=== PATIENT | female | born 1970 | race Two or more races ===

== ENCOUNTER 2022-03-23 01:32 | Inpatient (IN) | payer MEDICAID ==
[~2022-03-23] VITALS: Ht 154.9 cm; Wt 68.5 kg
[2022-03-23 02:30] LABS: Basophils # (auto) 0.1 10 ^3/uL (0-0.2); Basophils % (auto) 1.5 % (0.0-2.0); Eosinophils # (auto) 0.9 10 ^3/uL (0-0.8); Eosinophils % (auto) 11.5 % (0.0-7.0); Hematocrit 39.8 % (36.0-46.0); Hemoglobin 13.3 g/dL (12.2-16.2); Lymphocytes # (auto) 3.3 10 ^3/uL (0.4-5.4); Lymphocytes % (auto) 41.4 % (10.0-50.0); Mean Corpuscular Hemoglobin 29.3 pg (28.0-32.0); Mean Corpuscular Hgb Conc. 33.4 g/dL (32.0-36.0); Mean Corpuscular Volume 87.7 fL (80.0-100.0); Monocytes # (auto) 0.5 10 ^3/uL (0-1.3); Neutrophils # (auto) 3.2 10 ^3/uL (1.6-8.6); Neutrophils % (auto) 39.6 % (37.0-80.0); Nucleated Red Blood Cells % 0.1 %; Red Blood Cells 4.53 10^6/uL (4.0-5.20); Red Cell Distribution Width 14.6 % (11.8-14.3); White Blood Cell 8.1 10^3/uL (4.4-10.8)
[2022-03-23] MEDS ORDERED: AZITHROMYCIN 250 MG TAB PO ONE (02:45)
[2022-03-23] MEDS ORDERED: ALBUTEROL SULF 2.5 MG/0.5ML(0.5%) NEB SOLN NEB ONE ×2 (02:45→05:15)
[2022-03-23 02:48] LABS: Albumin 3.4 g/dL (3.4-5.0); BUN/Creatinine Ratio 26.8; Calcium 8.4 mg/dL (8.5-10.1); Potassium 3.8 mmol/L (3.5-5.1)
[2022-03-23 02:50] LABS: Bilirubin, Total 0.3 mg/dL (0.2-1.0); Total Protein 7.2 g/dL (6.4-8.2)
[2022-03-23] MEDS ORDERED: methylPREDNISolone SOD SUCC 125 MG/2 ML VL IV ONE (05:15)
[2022-03-23] MEDS ORDERED: ONDANSETRON HCL 4 MG/2 ML VIAL IV PRN (10:30)
[2022-03-23] MEDS ORDERED: DOCUSATE SOD 100 MG CAP PO PRN (10:30)
[2022-03-23] MEDS ORDERED: DEXTROSE (50%) 50ML SYRG IV PRN (10:30)
[2022-03-23] MEDS: ALBUTEROL SULF 2.5 MG/0.5ML(0.5%) NEB SOLN NEB SCH ×2 (11:50→19:40)
[2022-03-23] MEDS: IPRATROPIUM BROM 0.5 MG/2.5ML INH SOL NEB SCH ×2 (11:50→19:40)
[2022-03-23] MEDS: ACCU-CHEK COMFORT CURVE STRIP VI SCH ×3 (13:16→23:51)
[2022-03-23] MEDS: InsuLIN REG 1unit/0.01ml Soln (100units/ml) SC SCH ×2 (13:25→17:43)
[2022-03-23 15:56] VITALS: BP 141/82
[2022-03-23] MEDS: HYDROcodone-ACET 5/325MG TAB PO PRN (17:49)
[2022-03-24] MEDS: methylPREDNISolone SOD SUCC 40 MG/ML VL IV SCH ×3 (00:25→22:36)
[2022-03-24] MEDS: InsuLIN REG 1unit/0.01ml Soln (100units/ml) SC SCH ×5 (00:25→22:41)
[2022-03-24 04:43] LABS: Basophils # (auto) 0 10 ^3/uL (0-0.2); Basophils % (auto) 0.4 % (0.0-2.0); Eosinophils # (auto) 0 10 ^3/uL (0-0.8); Eosinophils % (auto) 0.3 % (0.0-7.0); Hematocrit 38.1 % (36.0-46.0); Hemoglobin 12.5 g/dL (12.2-16.2); Lymphocytes # (auto) 2.3 10 ^3/uL (0.4-5.4); Lymphocytes % (auto) 19.7 % (10.0-50.0); Mean Corpuscular Hemoglobin 28.9 pg (28.0-32.0); Mean Corpuscular Hgb Conc. 32.8 g/dL (32.0-36.0); Monocytes # (auto) 0.8 10 ^3/uL (0-1.3); Monocytes % (auto) 7.1 % (0.0-12.0); Neutrophils # (auto) 8.5 10 ^3/uL (1.6-8.6); Neutrophils % (auto) 72.5 % (37.0-80.0); Red Blood Cells 4.33 10^6/uL (4.0-5.20); Red Cell Distribution Width 14.9 % (11.8-14.3); White Blood Cell 11.8 10^3/uL (4.4-10.8)
[2022-03-24 05:09] LABS: Potassium 4.3 mmol/L (3.5-5.1)
[2022-03-24 05:15] LABS: Albumin 3.1 g/dL (3.4-5.0); BUN/Creatinine Ratio 33.3
[2022-03-24 05:18] LABS: Bilirubin, Total 0.3 mg/dL (0.2-1.0); Total Protein 6.6 g/dL (6.4-8.2)
[2022-03-24] MEDS: IPRATROPIUM BROM 0.5 MG/2.5ML INH SOL NEB SCH ×3 (06:22→18:57)
[2022-03-24] MEDS: ALBUTEROL SULF 2.5 MG/0.5ML(0.5%) NEB SOLN NEB SCH ×3 (06:22→18:57)
[2022-03-24] MEDS: ACCU-CHEK COMFORT CURVE STRIP VI SCH ×4 (07:24→22:36)
[2022-03-24] MEDS: HYDROcodone-ACET 5/325MG TAB PO PRN ×2 (08:22→17:52)
[2022-03-24] MEDS: ENOXAPARIN SOD 40 MG/0.4 ML SYRINGE SC SCH (09:56)
[2022-03-24] MEDS: AZITHROMYCIN 500MG/ 250ML 250 ML IV SCH (09:56)
[2022-03-24] MEDS ORDERED: SODIUM CHLORIDE 0.9% 1,000 ML IV ONE (12:00)
[2022-03-24 12:11] LABS: Cholesterol 161 mg/dL (< 200); Triglycerides 148 mg/dL (< 150)
[2022-03-24 12:13] LABS: HDL Cholesterol 57 mg/dL (40-59); LDL Cholesterol 92 mg/dL (< 100)
[2022-03-24 17:10] VITALS: BP 137/77
[2022-03-24] MEDS ORDERED: ALBUAER3 IN (18:46)
[2022-03-24] MEDS ORDERED: INSLANTI SC (18:46)
[2022-03-24] MEDS ORDERED: METF-370 PO (18:46)
[2022-03-24 21:41] VITALS: BP 133/70
[2022-03-25 05:00] VITALS: BP 139/70
[2022-03-25] MEDS: InsuLIN REG 1unit/0.01ml Soln (100units/ml) SC SCH ×4 (06:17→21:41)
[2022-03-25] MEDS: ACCU-CHEK COMFORT CURVE STRIP VI SCH ×4 (06:17→21:40)
[2022-03-25] MEDS: IPRATROPIUM BROM 0.5 MG/2.5ML INH SOL NEB SCH ×3 (08:34→22:26)
[2022-03-25] MEDS: ALBUTEROL SULF 2.5 MG/0.5ML(0.5%) NEB SOLN NEB SCH ×4 (08:34→22:26)
[2022-03-25 09:00] VITALS: BP 137/82
[2022-03-25] MEDS: HYDROcodone-ACET 5/325MG TAB PO PRN ×2 (11:00→16:38)
[2022-03-25] MEDS: ENOXAPARIN SOD 40 MG/0.4 ML SYRINGE SC SCH (11:01)
[2022-03-25] MEDS: methylPREDNISolone SOD SUCC 40 MG/ML VL IV SCH ×2 (11:01→21:40)
[2022-03-25] MEDS: AZITHROMYCIN 500MG/ 250ML 250 ML IV SCH (11:01)
[2022-03-25 12:00] VITALS: BP 131/81
[2022-03-25 16:02] LABS: Beta HCG, Quantitative < 1 mlU/mL (1-3); Thyroid Stimulating Hormone 1.29 uIU/mL (0.358-3.74)
[2022-03-25 17:00] VITALS: BP 149/87
[2022-03-25] MEDS ORDERED: IPRATROPIUM BROM 0.5 MG/2.5ML INH SOL NEB SCH (18:00)
[2022-03-25 21:30] VITALS: BP 130/82
[2022-03-26 04:30] VITALS: BP 134/81
[2022-03-26] MEDS: IPRATROPIUM BROM 0.5 MG/2.5ML INH SOL NEB SCH ×6 (06:09→22:39)
[2022-03-26] MEDS: ALBUTEROL SULF 2.5 MG/0.5ML(0.5%) NEB SOLN NEB SCH ×6 (06:09→22:39)
[2022-03-26] MEDS: InsuLIN REG 1unit/0.01ml Soln (100units/ml) SC SCH ×4 (06:19→22:10)
[2022-03-26] MEDS: ACCU-CHEK COMFORT CURVE STRIP VI SCH ×4 (06:19→21:14)
[2022-03-26] MEDS ORDERED: ADENOSINE 58 MG in GIVE UN-DILUTED 0 ML IV STA (07:14)
[2022-03-26 08:00] VITALS: BP 140/73
[2022-03-26 08:24] VITALS: BP 143/91
[2022-03-26] MEDS ORDERED: PRED20TA2 PO (10:14)
[2022-03-26] MEDS ORDERED: ALBU108A5 IN (10:14)
[2022-03-26] MEDS ORDERED: AZITTAB PO (10:14)
[2022-03-26] MEDS: ENOXAPARIN SOD 40 MG/0.4 ML SYRINGE SC SCH (10:33)
[2022-03-26] MEDS: AZITHROMYCIN 250 MG TAB PO SCH (10:33)
[2022-03-26] MEDS: methylPREDNISolone SOD SUCC 40 MG/ML VL IV SCH ×2 (10:34→21:14)
[2022-03-26 12:00] VITALS: BP 140/84
[2022-03-26 16:00] VITALS: BP 146/99
[2022-03-26 22:00] VITALS: BP 139/79
[2022-03-27 05:00] VITALS: BP 137/93
[2022-03-27] MEDS: ACCU-CHEK COMFORT CURVE STRIP VI SCH ×3 (06:07→17:00)
[2022-03-27] MEDS: InsuLIN REG 1unit/0.01ml Soln (100units/ml) SC SCH ×3 (06:10→17:00)
[2022-03-27] MEDS: IPRATROPIUM BROM 0.5 MG/2.5ML INH SOL NEB SCH ×2 (06:58→10:33)
[2022-03-27] MEDS: ALBUTEROL SULF 2.5 MG/0.5ML(0.5%) NEB SOLN NEB SCH ×2 (06:58→10:33)
[2022-03-27 08:20] VITALS: BP 141/91
[2022-03-27] MEDS: AZITHROMYCIN 250 MG TAB PO SCH (10:06)
[2022-03-27] MEDS: methylPREDNISolone SOD SUCC 40 MG/ML VL IV SCH (10:06)
[2022-03-27] MEDS: ENOXAPARIN SOD 40 MG/0.4 ML SYRINGE SC SCH (10:06)
[2022-03-27 12:20] VITALS: BP 139/91
[2022-03-27 16:15] VITALS: BP 137/84
== END 2022-03-27 17:15 | disposition home or self-care (01) | DRG 141 ==
LOC: ER 01:39 → OVERFLOW 10:29 → EAST 03-24 16:52
PROVIDERS: ADMIT Nurse Practitioner Family; ATTEND Nurse Practitioner Acute Care
DX: J45.901 Unspecified asthma with (acute) exacerbation (principal); I24.9 Acute ischemic heart disease, unspecified; E11.65 Type 2 diabetes mellitus with hyperglycemia; E66.9 Obesity, unspecified; E78.5 Hyperlipidemia, unspecified; Z20.822 Contact with and (suspected) exposure to COVID-19; Z79.4 Long term (current) use of insulin; Z90.49 Acquired absence of other specified parts of digestive tract; Z68.28 Body mass index [BMI] 28.0-28.9, adult
CPT/HCPCS: 36415; 71045; 78452; 80053; 80061; 82962; 83036; 83735; 83880; 84443; 84484; 84702; 85025; 87426; 87804; 93005; 93017; 93306; 94640; 96374; G0378; J0153; J1815

== ENCOUNTER 2022-08-27 01:18 | Emergency (ER) | payer MEDICAID ==
[~2022-08-27] VITALS: Ht 154.9 cm; Wt 73.0 kg
[~2022-08-27 01:18] MED LIST: ALBU108A5 IN; ALBUAER3 IN; AMOX500T3 PO; AZITTAB PO; INSLANTI SC; METF-370 PO; METH4PAK PO; PRED20TA2 PO; PROM1SOL4 PO
[2022-08-27] MEDS ORDERED: ALBUTEROL SULF 2.5 MG/0.5ML(0.5%) NEB SOLN NEB ONE ×2 (01:30→05:45)
[2022-08-27] MEDS ORDERED: IPRATROPIUM BROM 0.5 MG/2.5ML INH SOL NEB ONE ×2 (01:30→05:45)
[2022-08-27] MEDS ORDERED: DexAMETHasone SOD PHOS 10MG/1ML VIAL INJ IM ONE (01:45)
[2022-08-27] MEDS ORDERED: PRED20TA2 PO (05:27)
[2022-08-27] MEDS ORDERED: AZIT250T9 PO (05:27)
[2022-08-27] MEDS ORDERED: ALBUAER3 IN (05:27)
[2022-08-27 06:40] VITALS: BP 134/82
== END 2022-08-27 05:28 | disposition home or self-care (01) ==
LOC: ER 01:18
DX: J45.901 Unspecified asthma with (acute) exacerbation (principal); E11.9 Type 2 diabetes mellitus without complications; E78.5 Hyperlipidemia, unspecified
CPT/HCPCS: 71045; 94640; 96372; 99283; J1100; J7644

== ENCOUNTER 2023-06-29 11:00 | Emergency (ER) | payer SELFPAY ==
[~2023-06-29] VITALS: Ht 154.9 cm; Wt 67.9 kg
[~2023-06-29 11:00] MED LIST changes: +AZIT-43 PO
[2023-06-29 12:26] VITALS: BP 155/86; PULSE 104; TEMP 97.9
[2023-06-29] MEDS ORDERED: DexAMETHasone SOD PHOS 10MG/1ML VIAL INJ IM ONE (13:00)
[2023-06-29] MEDS ORDERED: IPRATROPIUM BROM 0.5 MG/2.5ML INH SOL NEB ONE (13:00)
[2023-06-29] MEDS ORDERED: ALBUTEROL SULF 2.5 MG/0.5ML(0.5%) NEB SOLN NEB ONE (13:00)
[2023-06-29 13:24] LABS: Basophils # (auto) 0.1 10 ^3/uL (0-0.2); Basophils % (auto) 0.4 % (0.0-2.0); Eosinophils # (auto) 0.1 10 ^3/uL (0-0.8); Eosinophils % (auto) 0.5 % (0.0-7.0); Hematocrit 42.8 % (36.0-46.0); Hemoglobin 13.9 g/dL (12.2-16.2); Lymphocytes # (auto) 1.7 10 ^3/uL (0.4-5.4); Lymphocytes % (auto) 12.6 % (10.0-50.0); Mean Corpuscular Hgb Conc. 32.5 g/dL (32.0-36.0); Mean Corpuscular Volume 89.4 fL (80.0-100.0); Monocytes # (auto) 0.5 10 ^3/uL (0-1.3); Neutrophils # (auto) 11.1 10 ^3/uL (1.6-8.6); Neutrophils % (auto) 82.5 % (37.0-80.0); Red Blood Cells 4.79 10^6/uL (4.0-5.20); Red Cell Distribution Width 14.6 % (11.8-14.3); White Blood Cell 13.5 10^3/uL (4.4-10.8)
[2023-06-29 13:31] LABS: Chloride 109 mmol/L (98-107); Potassium 4.6 mmol/L (3.5-5.1); Sodium 141 mmol/L (136-145)
[2023-06-29 13:32] LABS: Anion Gap 9 (5-15); Calcium 9.4 mg/dL (8.5-10.1); Carbon Dioxide 23 mmol/L (20-30)
[2023-06-29 13:37] LABS: BUN/Creatinine Ratio 21.9 (10.0-20.0); Blood Urea Nitrogen 14 mg/dL (9-23); Glucose 132 mg/dL (74-106)
[2023-06-29 13:53] VITALS: RESP 16; O2SAT 98
== END 2023-06-29 14:35 | disposition home or self-care (01) ==
LOC: ER 11:00
DX: J45.901 Unspecified asthma with (acute) exacerbation (principal); E11.9 Type 2 diabetes mellitus without complications; E78.5 Hyperlipidemia, unspecified
CPT/HCPCS: 36415; 71046; 80048; 84484; 85025; 94640; 96372; 99284; J1100; J7644

== ENCOUNTER 2023-07-06 04:01 | Emergency (ER) | payer SELFPAY ==
[~2023-07-06] VITALS: Ht 154.9 cm; Wt 70.5 kg
[2023-07-06 04:05] VITALS: BP 145/76; PULSE 94; TEMP 97.8
[2023-07-06] MEDS ORDERED: ALBUTEROL SULF 2.5 MG/0.5ML(0.5%) NEB SOLN NEB ONE (04:15)
[2023-07-06] MEDS ORDERED: IPRATROPIUM BROM 0.5 MG/2.5ML INH SOL NEB ONE (04:15)
[2023-07-06] MEDS ORDERED: DexAMETHasone SOD PHOS 10MG/1ML VIAL INJ IM ONE (04:30)
[2023-07-06 04:31] VITALS: RESP 18; O2SAT 97
[2023-07-06] MEDS ORDERED: PRED20TA2 PO (04:39)
[2023-07-06] MEDS ORDERED: FLUTICASONE PROP NASAL SPR 0.05 % (50MCG) 16GM EACHNOSTRI ONE (05:30)
[2023-07-06] MEDS ORDERED: AZIT500T66 PO (05:34)
== END 2023-07-06 06:02 | disposition home or self-care (01) ==
LOC: ER 04:01
DX: J45.901 Unspecified asthma with (acute) exacerbation (principal); E11.9 Type 2 diabetes mellitus without complications; E78.5 Hyperlipidemia, unspecified
CPT/HCPCS: 71046; 94640; 96372; 99283; J1100; J7644

== ENCOUNTER 2023-07-23 22:34 | Emergency (ER) | payer MEDICAID ==
[~2023-07-23] VITALS: Ht 154.9 cm; Wt 72.0 kg
[~2023-07-23 22:34] MED LIST changes: +AZIT500T66 PO
[2023-07-23 22:45] VITALS: BP 133/84; PULSE 86; RESP 20; TEMP 97.6; O2SAT 96
[2023-07-24] MEDS ORDERED: BENZ100C97 PO (01:55)
[2023-07-24] MEDS ORDERED: ALBU108A5 IN (01:55)
[2023-07-24] MEDS: DexAMETHasone SOD PHOS 10MG/1ML VIAL INJ IM ONE (02:04)
== END 2023-07-24 02:11 | disposition home or self-care (01) ==
LOC: ER 22:34
DX: J45.901 Unspecified asthma with (acute) exacerbation (principal); E11.9 Type 2 diabetes mellitus without complications; E78.5 Hyperlipidemia, unspecified
CPT/HCPCS: 96372; 99283; J1100

== ENCOUNTER 2023-09-18 02:57 | Inpatient (IN) | payer MEDICAID ==
[~2023-09-18] VITALS: Ht 154.9 cm; Wt 65.5 kg
[2023-09-18] VITALS (9 sets, daily range): BP systolic 86–134; BP diastolic 67–75; PULSE 82–114; RESP 12–26; TEMP 97.9; O2SAT 87–99
[~2023-09-18 02:57] MED LIST changes: +BENZ100C97 PO
[2023-09-18] MEDS: IPRATROPIUM BROM 0.5 MG/2.5ML INH SOL NEB ONE ×3 (03:26→05:30)
[2023-09-18] MEDS: ALBUTEROL SULF 2.5 MG/0.5ML(0.5%) NEB SOLN NEB ONE ×3 (03:26→05:30)
[2023-09-18 04:11] LABS: Basophils # (auto) 0.1 10 ^3/uL (0-0.2); Eosinophils # (auto) 1.1 10 ^3/uL (0-0.8); Eosinophils % (auto) 10.5 % (0.0-7.0); Hematocrit 42.4 % (36.0-46.0); Lymphocytes # (auto) 3.3 10 ^3/uL (0.4-5.4); Lymphocytes % (auto) 32.4 % (10.0-50.0); Mean Corpuscular Hemoglobin 29.3 pg (28.0-32.0); Mean Corpuscular Hgb Conc. 32.9 g/dL (32.0-36.0); Mean Corpuscular Volume 89.1 fL (80.0-100.0); Monocytes # (auto) 0.6 10 ^3/uL (0-1.3); Monocytes % (auto) 5.5 % (0.0-12.0); Neutrophils # (auto) 5.1 10 ^3/uL (1.6-8.6); Neutrophils % (auto) 50.6 % (37.0-80.0); Red Blood Cells 4.76 10^6/uL (4.0-5.20); Red Cell Distribution Width 14.4 % (11.8-14.3); White Blood Cell 10.1 10^3/uL (4.4-10.8)
[2023-09-18 04:12] LABS: Chloride 107 mmol/L (98-107); Potassium 3.6 mmol/L (3.5-5.1); Sodium 135 mmol/L (136-145)
[2023-09-18 04:13] LABS: Anion Gap 7 (5-15); Calcium 9.1 mg/dL (8.7-10.4); Carbon Dioxide 21 mmol/L (20-30)
[2023-09-18 04:18] LABS: BUN/Creatinine Ratio 12.7 (10.0-20.0); Blood Urea Nitrogen 7 mg/dL (9-23); Glucose 105 mg/dL (74-106)
[2023-09-18] MEDS: methylPREDNISolone SOD SUCC 125 MG/2 ML VL IV ONE (05:08)
[2023-09-18] MEDS ORDERED: DEXTROSE (50%) 50ML SYRG IV PRN (06:00)
[2023-09-18] MEDS ORDERED: NITROGLYCERIN 0.4 MG SL TAB SL PRN (06:00)
[2023-09-18] MEDS: ACCU-CHEK COMFORT CURVE STRIP VI SCH (06:34)
[2023-09-18] MEDS: KETOROLAC TROMETH 30 MG/ML 1ML VIAL IV ONE (06:36)
[2023-09-18] MEDS: InsuLIN REG 1unit/0.01ml Soln (100units/ml) SC SCH (06:36)
[2023-09-18] MEDS: IPRATROPIUM BROM 0.5 MG/2.5ML INH SOL NEB PRN (09:52)
[2023-09-18] MEDS: ALBUTEROL SULF 2.5 MG/0.5ML(0.5%) NEB SOLN NEB PRN (09:53)
[2023-09-18] MEDS: methylPREDNISolone SOD SUCC 40 MG/ML VL IV SCH ×2 (10:41→22:34)
[2023-09-18] MEDS: ONDANSETRON HCL 4 MG/2 ML VIAL IV PRN (10:41)
[2023-09-18] MEDS: MORPHINE SULFATE INJ 2 MG/ml SYRG IV PRN (10:42)
[2023-09-18 11:04] LABS: Base Excess -2.5 mmol/L (-2.0-2.0)
[2023-09-18] MEDS: IPRATROPIUM BROM 0.5 MG/2.5ML INH SOL NEB SCH (14:39)
[2023-09-18] MEDS: ALBUTEROL SULF 2.5 MG/0.5ML(0.5%) NEB SOLN NEB SCH (14:39)
[2023-09-18] MEDS: MAGNESIUM SULFATE 1GM/100ML 100 ML IV ONE (18:25)
[2023-09-18] MEDS: SODIUM CHLORIDE 0.9% 1,000 ML IV ONE (18:25)
[2023-09-18] MEDS: ACETAMINOPHEN 325 MG TAB PO PRN (18:26)
[2023-09-18] MEDS: IPRATROPIUM BROM 0.5 MG/2.5ML INH SOL ONE ×2 (18:34→22:26)
[2023-09-18] MEDS: ALBUTEROL SULF 2.5 MG/0.5ML(0.5%) NEB SOLN ONE ×2 (18:34→22:26)
[2023-09-18] MEDS: MONTELUKAST SODIUM 10 MG TAB PO SCH (22:33)
[2023-09-19] VITALS (13 sets, daily range): BP systolic 86–130; BP diastolic 55–72; PULSE 75–98; RESP 17–22; TEMP 97.7–98.1; O2SAT 95–100
[2023-09-19] MEDS: ALBUTEROL SULF 2.5 MG/0.5ML(0.5%) NEB SOLN ONE (02:10)
[2023-09-19] MEDS: IPRATROPIUM BROM 0.5 MG/2.5ML INH SOL ONE (02:10)
[2023-09-19 03:12] LABS: Urine Bacteria FEW /hpf (None Seen); Urine Blood Negative /uL (Negative); Urine Clarity Clear (Clear); Urine Color Light-Yellow (Yellow); Urine Protein, UAD Negative (Negative); Urine Specific Gravity 1.047 (1.001-1.035); Urine Urobilinogen Normal (Negative); Urine WBC 1 /hpf (0 - 5); Urine pH 5.5 (5.0-9.0)
[2023-09-19 06:31] LABS: Basophils # (auto) 0 10 ^3/uL (0-0.2); Basophils % (auto) 0.4 % (0.0-2.0); Eosinophils # (auto) 0 10 ^3/uL (0-0.8); Eosinophils % (auto) 0.1 % (0.0-7.0); Hematocrit 39.6 % (36.0-46.0); Hemoglobin 12.9 g/dL (12.2-16.2); Lymphocytes # (auto) 1.2 10 ^3/uL (0.4-5.4); Lymphocytes % (auto) 17.8 % (10.0-50.0); Mean Corpuscular Hgb Conc. 32.6 g/dL (32.0-36.0); Mean Corpuscular Volume 88.9 fL (80.0-100.0); Monocytes # (auto) 0.3 10 ^3/uL (0-1.3); Monocytes % (auto) 4.7 % (0.0-12.0); Neutrophils # (auto) 5.1 10 ^3/uL (1.6-8.6); Red Blood Cells 4.46 10^6/uL (4.0-5.20); Red Cell Distribution Width 14.7 % (11.8-14.3); White Blood Cell 6.6 10^3/uL (4.4-10.8)
[2023-09-19 06:41] LABS: Calcium 8.4 mg/dL (8.5-10.1); Chloride 106 mmol/L (98-107); Potassium 4.2 mmol/L (3.5-5.1); Sodium 137 mmol/L (136-145)
[2023-09-19 06:42] LABS: Anion Gap 11 (5-15); Carbon Dioxide 20 mmol/L (20-30)
[2023-09-19 06:47] LABS: BUN/Creatinine Ratio 23.1 (10.0-20.0); Blood Urea Nitrogen 12 mg/dL (9-23); Glucose 202 mg/dL (74-106)
[2023-09-19] MEDS: HYDROcodone-ACET 5/325MG TAB PO ONE (08:39)
[2023-09-19] MEDS: BUDESONIDE (INHALATION) 0.5 MG/2 ML NEB NEB SCH (22:47)
[2023-09-20] VITALS (13 sets, daily range): BP systolic 106–134; BP diastolic 57–74; PULSE 80–109; RESP 16–20; TEMP 97.5–98.3; O2SAT 93–99
[2023-09-21] VITALS (19 sets, daily range): BP systolic 110–133; BP diastolic 63–79; PULSE 83–109; RESP 16–20; TEMP 97.9–98.7; O2SAT 90–99
[2023-09-21] MEDS: TEMAZEPAM 15 MG CAP PO PRN (22:09)
[2023-09-22] VITALS (12 sets, daily range): BP systolic 126–137; BP diastolic 69–83; PULSE 69–121; RESP 16–20; TEMP 97.6–98.6; O2SAT 92–100
[2023-09-22] MEDS ORDERED: DEXTROSE (50%) 50ML SYRG IV PRN (10:30)
[2023-09-22] MEDS ORDERED: ALBU108A5 IN (11:26)
[2023-09-22] MEDS ORDERED: MONT10TA23 PO (11:26)
[2023-09-22] MEDS ORDERED: PRED20TA2 PO (11:26)
[2023-09-22] MEDS: ACCU-CHEK COMFORT CURVE STRIP VI SCH (11:30)
[2023-09-22] MEDS: InsuLIN REG 1unit/0.01ml Soln (100units/ml) SC SCH (13:05)
[2023-09-22] MEDS ORDERED: InsuLIN REG 1unit/0.01ml Soln (100units/ml) SC SCH (22:00)
== END 2023-09-22 17:00 | disposition home or self-care (01) | DRG 133 ==
LOC: ER 02:57 → TELE 05:55 → TELE-CENTR 09-19 14:40 → CENTRAL 09-20 00:37
PROVIDERS: ADMIT Nurse Practitioner; ATTEND Nurse Practitioner Acute Care
DX: J96.21 Acute and chronic respiratory failure with hypoxia (principal); J45.901 Unspecified asthma with (acute) exacerbation; I10 Essential (primary) hypertension; Z79.899 Other long term (current) drug therapy; Z90.49 Acquired absence of other specified parts of digestive tract; E11.65 Type 2 diabetes mellitus with hyperglycemia
CPT/HCPCS: 36415; 36600; 71045; 71275; 80048; 81001; 82805; 82962; 83880; 84484; 85025; 93005; 93970; 94640; 96365; 96372; 96375; 96376; G0378; J1815; J1885; J2405

== ENCOUNTER 2024-03-20 21:01 | Emergency (ER) | payer MEDICAID, OTHER ==
[~2024-03-20] VITALS: Ht 162.6 cm; Wt 81.8 kg
[~2024-03-20 21:01] MED LIST changes: -ALBUAER3 IN; -AMOX500T3 PO; -AZIT-43 PO; -AZIT500T66 PO; -AZITTAB PO; -BENZ100C97 PO; -METH4PAK PO; +MONT10TA23 PO; -PROM1SOL4 PO
[2024-03-20] MEDS: IOHEXOL 300 MG/ML 100ML BOTTLE IJ ONE (22:24)
[2024-03-20 23:04] LABS: Hematocrit 35.6 % (36.0-46.0); Hemoglobin 11.9 g/dL (12.2-16.2); Mean Corpuscular Hemoglobin 30.3 pg (28.0-32.0); Mean Corpuscular Hgb Conc. 33.4 g/dL (32.0-36.0); Mean Corpuscular Volume 90.9 fL (80.0-100.0); Platelet Count (auto) 265 10^3/uL (140-450); Red Blood Cells 3.91 10^6/uL (4.0-5.20); Red Cell Distribution Width 14.1 % (11.8-14.3)
[2024-03-20 23:07] LABS: Basophils % (manual) 0 (0.0-2.0); Blast Cells 0; Eosinophils % (manual) 0 (0-7); Metamyelocytes % 0; Myelocytes % 0; Promyelocytes % 0; Reactive Lymphocytes 0
[2024-03-20 23:26] LABS: Albumin 3.6 g/dL (3.2-4.8); Alkaline Phosphatase 110 U/L (46-116); Anion Gap 4 (5-15); Aspartate Aminotransferase 81 U/L (13-40); BUN/Creatinine Ratio 19.4 (10.0-20.0); Bilirubin, Total 0.4 mg/dL (0.2-1.0); Blood Urea Nitrogen 13 mg/dL (9-23); Calcium 8.4 mg/dL (8.7-10.4); Carbon Dioxide 25 mmol/L (20-31); Chloride 109 mmol/L (98-107); Glucose 153 mg/dL (74-106); Potassium 3.1 mmol/L (3.5-5.1); Sodium 138 mmol/L (136-145); Total Protein 5.9 g/dL (5.7-8.2)
[2024-03-20 23:29] LABS: Band Neutrophils % (manual) 2; Lymphocytes % (manual) 8 (10.0-50.0); Monocytes % (manual) 9 (0-12); Platelet Estimate Adequate
[2024-03-20 23:35] VITALS: PULSE 119; RESP 22; O2SAT 96
[2024-03-20 23:57] LABS: Alanine Aminotransferase 59 U/L (7-40)
[2024-03-21] MEDS: ONDANSETRON HCL 4 MG/2 ML VIAL IV ONE (00:27)
[2024-03-21] MEDS: SODIUM CHLORIDE 0.9% 1,000 ML IV ONE (00:28)
[2024-03-21] MEDS: MORPHINE SULFATE 4 MG/ML SYR/VIAL IV ONE (00:28)
[2024-03-21 02:00] VITALS: BP 116/60; PULSE 108; RESP 17; TEMP 98.1; O2SAT 93
[2024-03-21] MEDS: HYDROcodone-ACET 10/325MG TAB PO ONE (02:15)
== END 2024-03-21 00:02 | disposition short-term general hospital (02) ==
LOC: EDUNIT# 21:01 → EDBD 21:01 → ER 21:01
DX: S22.41XA Multiple fractures of ribs, right side, initial encounter for closed fracture (principal); S32.018A Other fracture of first lumbar vertebra, initial encounter for closed fracture; S32.028A Other fracture of second lumbar vertebra, initial encounter for closed fracture; S32.038A Other fracture of third lumbar vertebra, initial encounter for closed fracture; S32.048A Other fracture of fourth lumbar vertebra, initial encounter for closed fracture; E11.9 Type 2 diabetes mellitus without complications; E78.5 Hyperlipidemia, unspecified; J45.909 Unspecified asthma, uncomplicated; Z90.49 Acquired absence of other specified parts of digestive tract; V43.52XA Car driver injured in collision with other type car in traffic accident, initial encounter; Y93.I9 Activity, other involving external motion; Y92.488 Other paved roadways as the place of occurrence of the external cause; Y99.8 Other external cause status
CPT/HCPCS: 36415; 70450; 71046; 71260; 72125; 74177; 80053; 85007; 85027; 96361; 96374; 96375; 99285; J2270; J2405; J7030; Q9967

== ENCOUNTER 2025-05-19 02:09 | Emergency (ER) | payer MEDICAID ==
[~2025-05-19] VITALS: Ht 154.9 cm; Wt 71.0 kg
[2025-05-19] MEDS: MORPHINE SULFATE 4 MG/ML SYR/VIAL IV ONE (02:59)
[2025-05-19] MEDS: ONDANSETRON HCL 4 MG/2 ML VIAL IV ONE (03:00)
[2025-05-19] MEDS: SODIUM CHLORIDE 0.9% 1,000 ML IV ONE ×2 (03:16→05:28)
[2025-05-19 03:21] LABS: Alanine Aminotransferase 22 U/L (7-40); Albumin 4.4 g/dL (3.2-4.8); Anion Gap 11 (5-15); BUN/Creatinine Ratio 13.6 (10.0-20.0); Bilirubin, Total 0.5 mg/dL (0.2-1.0); Calcium 9.7 mg/dL (8.7-10.4); Carbon Dioxide 29 mmol/L (20-31); Chloride 100 mmol/L (98-107); Lipase 40 U/L (12-53); Potassium 3.5 mmol/L (3.5-5.1); Sodium 140 mmol/L (136-145); Total Protein 7.2 g/dL (5.7-8.2)
[2025-05-19 03:32] LABS: Hematocrit 45.0 % (36.0-46.0); Hemoglobin 15.0 g/dL (12.2-16.2); Mean Corpuscular Hemoglobin 29.0 pg (28.0-32.0); Mean Corpuscular Volume 86.9 fL (80.0-100.0); Nucleated Red Blood Cells % 0.1 %
[2025-05-19 03:37] LABS: Alkaline Phosphatase 116 U/L (46-116); Blood Urea Nitrogen 8 mg/dL (9-23); Glucose 126 mg/dL (74-106)
[2025-05-19 03:40] LABS: Lactic Acid w/Reflex 2.5 mmol/L (0.4-2.0)
[2025-05-19 03:45] VITALS: O2SAT 98
[2025-05-19] MEDS: IOHEXOL 300 MG/ML 100ML BOTTLE IJ ONE (03:58)
--- NOTE | 2025-05-19 04:07 | ED.PDOC ---
History of Present Illness HPI Comments This is a 54-year-old female, with a past medical history of hypertension, asthma, diabetes, presents to the ED with a chief complaint of diffuse abdominal pain with the associated symptoms of nausea, vomiting, chest pain, and SOB since 0100 this morning. Patient reports abdominal pain as a 10/10, constant, radiating to back, with associated "burning" sensation to the abdomen. Patient reports taking medications for medical conditions daily, as prescribed. Patient reports approximately X3 episodes of emesis, denies hematemesis. REVIEW OF SYSTEMS: General: No fever, no chills, or fatigue HEENT: No sore throat, no earache, no congestion, no neck pain. Cardiac: (+) chest pain. No palpitations. Lungs: (+) shortness of breath, no cough. GI: (+) nausea, (+) vomiting, no diarrhea, no constipation, (+) abdominal pain : No dysuria, frequency, or urgency. No hematuria. Musculoskeletal: No joint pain , no joint swelling, no extremity edema. Skin: No rash, no itching. Neuro: No headache, no dizziness, no weakness (And as sated in HPI) PHYSICAL EXAM: General: Awake, alert and oriented. Moderate distress. Skin: Skin in warm, dry and intact. Appropriate color for ethnicity. HEENT: The head is normocephalic and atraumatic. Conjunctivae are clear without exudates or hemorrhage. Sclera is non-icteric. Eyelids are normal in appearance without swelling or lesions. Oral mucosa is pink and moist Neck: The neck is supple with normal range of motion. No JVD. Cardiac: Heart rate and rhythm are normal. No murmurs, gallops, or rubs are auscultated. Respiratory: No signs of respiratory distress. Lung sounds are clear in all lobes bilaterally without rales, rhonchi, or wheezes. Abdominal: Abdominal Tenderness. Bowel sounds are present and normoactive in all four quadrants. Extremities: Lower extremities without edema. Neurological: The patient is awake, alert and oriented to person, place, and time with normal speech. Speech is clear. There is no facial asymmetry. Psychiatric: Appropriate mood and affect. Good judgement and insight. Chief Complaint: Abdominal Pain Time Seen by MD: 02:40 Primary Care Provider: unkn Reviewed Notes: Medications, Allergies Allergies: Coded Allergies: NO KNOWN ALLERGIES (Unverified , 10/22/22) Home Meds Active Scripts Ondansetron Odt 4MG Tab (ZOFRAN PO) 4 Mg Tb, 4 MG PO TIDPRN PRN for 3 Days, #9 TAB ODT TAB-DISSOLVE IN MOUTH, THEN SWALLOW Prov:TAYE HUGO MD 05/19/25 Prednisone (Prednisone) 20 Mg Tab, 20 MG PO DAILY for 7 Days, #7 MG Prov:SHERON CHURCH MILITARY ADMINISTRATIVE TECHNICIAN 09/22/23 Montelukast Sodium (Singulair) 10 Mg Tab, 10 MG PO HS for 30 Days, #30 TAB Prov:SHERON CHURCH MILITARY ADMINISTRATIVE TECHNICIAN 09/22/23 Albuterol Sulfate (Albuterol Sulfate Hfa) 108 Mcg/Act Aer, 108 MCG IN Q4HP PRN for 30 Days, #1 AER Prov:SHERON CHURCH MILITARY ADMINISTRATIVE TECHNICIAN 09/22/23 Reported Medications Insulin Glargine (Lantus) 100 Unit/Ml Inj, 48 UNIT SC HS, INJ 03/24/22 Metformin Hydrochloride (Metformin Hcl) 500 Mg Tab, 1000 MG PO IBID for 30 Days, MG 03/24/22 Information Source: Patient Mode of Arrival: Ambulatory Severity: Moderate Timing: Hours Duration: Since onset Past Medical History PAST MEDICAL HISTORY: Asthma, DM, High Lipids, HTN Surgical History: Cholecystectomy COIL MAKER History: No Pertinent COIL MAKER History Family History Family History: Reviewed,noncontributory to illness Social History Smoker: Non-Smoker Alcohol: Denies ETOH Use Drugs: Denies Drug Use Lives In: Home Was a procedure done? Was a procedure done?: No Differential Dx Considerations may include: Differential diagnoses considered include: Abdominal aortic aneurysm, DC, esophageal rupture, intestinal obstruction, mesenteric ischemia, perforated viscus or solid organ rupture, CHF with hepatomegaly, pneumonia, abscess, appendicitis, biliary disease, diverticulitis, gastritis, gastroenteritis, hepatitis, hernia, inflammatory bowel disease, pancreatitis, peptic ulcer disease, urinary tract infection, ureteral colic, constipation, GERD, irritable syndrome, abdominal wall pain, nonspecific abdominal pain, herpes zoster, nephro lithiasis. [ ]Also ruptured ectopic , ovarian torsion/cyst, tubo- ovarian abscess, PID, endometriosis, mittleschmerz. X-Ray, Labs, Meds, VS Vital Signs Date Time Temp Pulse Resp B/P (MAP) Pulse Ox O2 Delivery O2 Flow Rate FiO2 05/19/25 09:23 97.9 80 18 134/82 (99) 98 97.9 05/19/25 05:32 97.6 84 16 128/86 (100) 94 97.6 05/19/25 03:45 98 Room Air* 0 21 05/19/25 03:42 82 16 111/66 (81) 96 05/19/25 03:29 68 16 115/78 05/19/25 02:59 81 21 128/65 05/19/25 02:22 97.4 97 18 173/91 91 97.4 Lab Test 05/19/25 06:24 05/19/25 02:49 05/19/25 02:23 Range/Units Lactic Acid Level 1.5 2.5 *H 0.4-2.0 mmol/L White Blood Count 11.8 H 4.4-10.8 10^3/uL Red Blood Count 5.17 4.0-5.20 10^6/uL Hemoglobin 15.0 12.2-16.2 g/dL Hematocrit 45.0 36.0-46.0 % Mean Corpuscular Volume 86.9 80.0-100.0 fL Mean Corpuscular Hemoglobin 29.0 28.0-32.0 pg Mean Corpuscular Hemoglobin Concent 33.4 32.0-36.0 g/dL Red Cell Distribution Width 14.5 H 11.8-14.3 % Platelet Count 383 140-450 10^3/uL Mean Platelet Volume 7.1 6.9-10.8 fL Neutrophils (%) (Auto) 72.4 37.0-80.0 % Lymphocytes (%) (Auto) 22.1 10.0-50.0 % Monocytes (%) (Auto) 4.3 0.0-12.0 % Eosinophils (%) (Auto) 1.0 0.0-7.0 % Basophils (%) (Auto) 0.2 0.0-2.0 % Neutrophils # (Auto) 8.6 1.6-8.6 10 ^3/uL Lymphocytes # (Auto) 2.6 0.4-5.4 10 ^3/uL Monocytes # (Auto) 0.5 0-1.3 10 ^3/uL Eosinophils # (Auto) 0.1 0-0.8 10 ^3/uL Basophils # (Auto) 0 0-0.2 10 ^3/uL Nucleated Red Blood Cells 0.1 % Sodium Level 140 136-145 mmol/L Potassium Level 3.5 3.5-5.1 mmol/L Chloride Level 100 98-107 mmol/L Carbon Dioxide Level 29 20-31 mmol/L Anion Gap 11 5-15 Blood Urea Nitrogen 8 L 9-23 mg/dL Creatinine 0.59 0.550-1.02 mg/dL Glomerular Filtration Rate Calc 107 >90 mL/min BUN/Creatinine Ratio 13.6 10.0-20.0 Serum Glucose 126 H 74-106 mg/dL Calcium Level 9.7 8.7-10.4 mg/dL Total Bilirubin 0.5 0.2-1.0 mg/dL Aspartate Amino Transferase (AST) 20 13-40 U/L Alanine Aminotransferase (ALT) 22 7-40 U/L Alkaline Phosphatase 116 46-116 U/L Troponin I High Sensitivity < 3 L </=34 ng/L Total Protein 7.2 5.7-8.2 g/dL Albumin 4.4 3.2-4.8 g/dL Lipase 40 12-53 U/L POC Glucose 117 H 70-106 mg/dl [place] [id number] Ph: [phone] DIAGNOSTIC IMAGING Diagnostic Imaging Report : [id number] Signed PATIENT: GERMAN RIVERAACCT: [id number] UNIT: [id number] : 04/20/1985 LOC: ER ROOM / BED: / AGE / SEX: 40 / M ADM STATUS: REG ER SERVICE 5 ORDERING PHYSICIAN: TAYE HUGO MD PROCEDURE(s): CXR1 - CHEST XRAY 1 VIEW REASON: cp ORDER NUMBER(s): [id number], ACCESSION NUMBER(s): [id number] CHEST RADIOGRAPH INDICATION: cp TECHNIQUE: Single frontal view of the chest was obtained COMPARISON: None FINDINGS: Lines and Tubes: None Lungs: Clear Pleura: No effusion. No pneumothorax. Cardiomediastinal contours: Unremarkable Bones: Unremarkable IMPRESSION: 1. No acute disease. Time of 1ST Reevaluation: 04:05 Reevaluation 1ST: Unchanged Patient Education/Counseling: Need For Follow Up Family Education/Counseling: No Family Present SEPSIS Sepsis Screen Date sepsis recognized/suspect: May 19, 2025 Time Sepsis recognized/suspect: 224 Recent Procedure: No On Antibiotic Therapy: No Respiratory Rate >20: No Heart Rate >90: No Temp<36 C (96.8 F) or >38.3 C: No SBP <90 or MAP <65 mmHG: No New Acute Mental Status Change: No Is the patient on CPAP, BIPAP,: No Physician Orders Ct Ab Pel With Iv Con Only (05/19/25 02:41) Vital Signs Date Time Temp Pulse Resp B/P (MAP) Pulse Ox O2 Delivery O2 Flow Rate FiO2 05/19/25 09:23 97.9 80 18 134/82 (99) 98 97.9 05/19/25 05:32 97.6 84 16 128/86 (100) 94 97.6 05/19/25 03:45 98 Room Air* 0 21 05/19/25 03:42 82 16 111/66 (81) 96 05/19/25 03:29 68 16 115/78 05/19/25 02:59 81 21 128/65 05/19/25 02:22 97.4 97 18 173/91 91 97.4 Laboratory Tests Test 05/19/25 02:49 05/19/25 06:24 Lactic Acid Level 2.5 mmol/L (0.4-2.0) *H 1.5 mmol/L (0.4-2.0) White Blood Count 11.8 10^3/uL (4.4-10.8) H Departure 1 Departure Time of Disposition: 05:50 Impression: Primary Impression: Enteritis Additional Impression: Abdominal pain Disposition: 01 HOME / SELF CARE / HOMELESS Condition: Stable Additional Instructions: INSTRUCCIONES DE BRITTNI DE Urgencias Instrucciones: Krista atentamente todas las instrucciones proporcionadas en maia paquete. Aunque le hayan dado el brittni del Departamento de Emergencias, esto no significa que tenga un "certificado de buena riana". Hoy no se skinner realizado ningn diagnstico definitivo para kathy sntomas. Es posible que ests en proceso de desarrollar serge enfermedad grave. Es por eso que debe regresar al servicio de urgencias sin falta si presenta algn sntoma nuevo o que empeora (especialmente si kathy sntomas incluyen dolor en el pecho, dificultad para respirar, dolor abdominal, fiebre, dolor de kacey, confusin, dificultad para landry o caminar). Tambin es muy importante que consulte a un mdico de atencin primaria dentro d e los prximos 3 a 5 hirsch para realizar un seguimiento. Si no puede conseguir serge joe, regrese al servicio de urgencias para serge nueva evaluacin. Dolor abdominal: instrucciones de cuidado Imagen de los cuatro cuadrantes del abdomen. Descripcin general El dolor abdominal tiene muchas causas posibles. Algunas no son graves y mejoran por s solas en unos hirsch. Otras requieren ms pruebas y tratamiento. Si el dolor contina o empeora, es necesario volver a examinarlo y es posible que necesite ms pruebas para averiguar qu es lo que est mal. Es posible que necesite serge ciruga para corregir el problema. No ignore los sntomas nuevos, maxwell fiebre, nuseas y vmitos, problemas para orinar, dolor que empeora y mareos. Estos pueden ser signos de un problema ms grave. Si no mejora, es posible que necesite ms pruebas o tratamiento. El mdico lo skinner examinado cuidadosamente, trevon pueden surgir problemas ms adelante. Si nota algn problema o sntomas nuevos, busque tratamiento mdico de inmediato . El seguimiento mdico es serge parte fundamental de dejesus tratamiento y dejesus seguridad. Asegrese de programar y acudir a todas las citas, y llame a dejesus mdico si tiene problemas. Tambin es serge buena idea saber los resultados de kathy pruebas y llevar serge lista de los medicamentos que lily. Gathering Worker puedes cuidarte en casa? Descansa hasta que te sientas mejor. Para prevenir la deshidratacin, nichole abundante lquido. Elija agua y otros lquidos everett hasta que se sienta mejor. Si tiene serge enfermedad renal, cardaca o heptica y debe limitar los lquidos, consulte con dejesus mdico antes de aumentar la cantidad de lquidos que graham. Cuando sientas ganas de comer, empieza con pequeas cantidades. No tomes alcohol, cafena ni alimentos picantes, calientes o con alto contenido de grasa moises alberto o dos hirsch. Evite los medicamentos antiinflamatorios maxwell la aspirina, el ibuprofeno (Advil, Motrin) y el naproxeno (Aleve). Pueden causar malestar estomacal. Hable con dejesus mdico si lily aspirina a diario por otro problema de riana. Cundo debes pedir ayuda? Llame al 911 en cualquier momento en que crea que puede necesitar atencin de emergencia. Por ejemplo, llame si: Te desmayaste (perdiste el conocimiento). Tiene heces de color marrn o con roula nandini. Vomitas nandini o lo que parecen posos de caf. Tienes un dolor intenso en el vientre. Llame a dejesus mdico ahora o busque atencin mdica inmediata si: El dolor empeora, especialmente si se concentra en serge deborah determinada del abdomen. Tiene fiebre nueva o ms brittni. Las heces son negras y parecen alquitrn, o tienen vetas de nandini. Tienes sangrado vaginal inesperado. Tiene sntomas de serge infeccin del tracto urinario. Estos pueden incluir: Dolor al orinar. Orinar con ms celioencia de lo habitual. Nandini en la orina. Se siente mareado o aturdido, o siente que se puede desmayar. Preste atencin a los cambios en dejesus riana y asegrese de comunicarse con dejesus mdico si: No ests mejorando maxwell esperabas. Crditos para el dolor abdominal: instrucciones de cuidado Actualizado al: 2023 Autor: Personal de [employer] Ondansetron Odt 4MG Tab (ZOFRAN PO) 4 Mg Tb 4 MG PO TIDPRN PRN for 3 Days, #9 TAB ODT TAB-DISSOLVE IN MOUTH, THEN SWALLOW Prov: TAYE HUGO MD 05/19/25 Comments 54-year-old female presented with abdominal pain. No peritoneal signs on abdominal exam. No evidence of acute abdomen at this time. Patient is well appearing. At the time of discharge patient is afebrile and is not hypotensive. Labs show mild leukocytosis, no elevation of LFTs. Imaging suggestive of enteritis. Low suspicion for acute hepatobiliary disease (including acute cholecystitis, acute pancreatitis, PUD (including perforation), acute infectious process (pneumonia, hepatitis, pyelonephritis), acute appendicitis, vascular catastrophe, bowel obstructions, viscous perforation. Presentation not consisten t with other acute, emergent causes of abdominal pain at this time. Patient felt stable for discharge home to follow up with the primary care provider promptly. Patient advised to return to the emergency department with any new, worsening or concerning symptoms. Critical Care Note Critical Care Time?: No Stability Stability form required: No Heart Score Heart Score: Heart Score Response (Comments) Value History N/A 0 EKG N/A 0 Age N/A 0 Risk Factors N/A 0 Troponin N/A 0 Total 0 I personally scribed for TAYE HUGO MD ([email or web address]) on 05/19/25 at 04:07. Electronically submitted by Lucia Comer ([email or web address]). I personally scribed for TAYE HUGO MD ([email or web address]) on 05/19/25 at 05:08. Electronically submitted by Lucia Comer ([email or web address]). TAYE HUGO MD May 19, 2025 04:07 CHEO NÚÑEZ MD May 19, 2025 08:57
--- NOTE | 2025-05-19 04:37 | DVH ---
EXAM: CT CT AB PEL WITH IV CON ONLY History: severe epigastric pain, n/v COMPARISON: CT CT CHEST/AB/PL W CON- IV ONLY on DOS: 03/20/24 TECHNIQUE: Multidetector spiral CT of the abdomen and pelvis was performed from lung bases to pubic symphysis. Intravenous contrast was administered during this examination. Portal venous imaging was obtained. Axial, coronal and sagittal multiplanar reformats were performed by the technologist on a separate workstation. Radiation Dose : 1. Abdomen/Pelvis: CTDIvol 11.66 mGy, DLP 738.68 mGy*cm. CONTRAST: Type of contrast: Omniscan 300 Contrast injected: 100 ml FINDINGS: Lung Bases: No acute or significant lung base finding. Posterior right lung base calcified granuloma. Normal heart size. No pleural or pericardial effusion. Liver: The liver is normal in size. No focal lesions. Normal hepatic vascular enhancement. Gallbladder and Biliary Tree: Status post cholecystectomy. Spleen: Unremarkable Pancreas: The pancreas is normal in appearance without focal lesions or abnormal enhancement. Adrenal Glands: Unremarkable Kidneys: No hydronephrosis. Bladder: Unremarkable Bowel: The stomach is grossly normal in appearance. Moderate diffuse small bowel wall thickening and enhancement suggestive of sequelae of enteritis. Retained colorectal stool. The appendix is normal. Ascites: Absent Lymphadenopathy: No mesenteric, retroperitoneal or periportal lymphadenopathy. Abdominal Wall and Mesentery: Unremarkable. Vasculature: The visualized abdominal aorta is normal in size and caliber. Abdominal and pelvic vessels demonstrate normal enhancement. Pelvic Organs: Unremarkable Musculoskeletal: No aggressive focal bony lesions, acute fractures or dislocation. IMPRESSION: 1. Moderate diffuse small bowel wall thickening and enhancement suggestive of sequelae of enteritis. 2. Retained colorectal stool. Radiation optimization: All CT scans at this facility use at least one of these dose optimization techniques: automated exposure control mA and/or kV adjustment per patient size (includes targeted exams where dose is matched to clinical indication) or iterative reconstruction.
[2025-05-19] MEDS ORDERED: ZOFR4T PO (05:51)
[2025-05-19] MEDS ORDERED: ceFAZolin 2 GM/D5W50ml 50 ML IV ONE (09:00)
[2025-05-19 09:23] VITALS: BP 134/82; PULSE 80; RESP 18; TEMP 97.9; O2SAT 98
== END 2025-05-19 09:20 | disposition home or self-care (01) ==
LOC: ER 02:09
DX: K52.9 Noninfective gastroenteritis and colitis, unspecified (principal); R10.84 Generalized abdominal pain; I10 Essential (primary) hypertension; E11.9 Type 2 diabetes mellitus without complications; J45.909 Unspecified asthma, uncomplicated; E78.5 Hyperlipidemia, unspecified; Z79.899 Other long term (current) drug therapy; Z90.49 Acquired absence of other specified parts of digestive tract; Z79.52 Long term (current) use of systemic steroids
CPT/HCPCS: 36415; 74177; 80053; 82947; 83605; 83690; 84484; 85025; 96361; 96374; 96375; 99285; J2270; J2405; J7030; Q9967; 82962